=== PATIENT | female | born 1950 | race Caucasian/White ===

== ENCOUNTER 2021-02-07 02:52 | Emergency (ER) | payer MEDICARE ==
[2021-02-07 03:03] LABS: HEMOGLOBIN 13.2 gm/dl (12.3-15.3); RED BLOOD COUNT 4.33 M/UL (4.00-5.10); WHITE BLOOD COUNT 8.3 K/UL (4.5-11.0)
[2021-02-07 03:24] LABS: BUN/CREATININE RATIO 19 (0-10)
== END 2021-02-07 07:00 | disposition home or self-care (01) ==
LOC: ER1 02:52
PROVIDERS: Family Medicine
DX: R07.9 Chest pain, unspecified (principal); F03.90 Unspecified dementia, unspecified severity, without behavioral disturbance, psychotic disturbance, mood disturbance, and anxiety
CPT/HCPCS: 70450; 71045; 72170; 80053; 81001; 82550; 82553; 83874; 84484; 85025; 87086; 93005; 99285